=== PATIENT | male | born 1965 | race Caucasian/White ===

== ENCOUNTER 2017-06-02 12:16 | Day surgery (SDC) | payer OTHER ==
[2017-06-02] MEDS ORDERED: PROPOFOL 40 ML (13:37)
[2017-06-02] MEDS ORDERED: LIDOCAINE 2% (SDV) 5 ML INJ (13:37)
[2017-06-02] MEDS ORDERED: PROPOFOL 20 ML (14:15)
== END 2017-06-02 14:45 | disposition home or self-care (01) ==
LOC: GIL 12:16
DX: R19.4 Change in bowel habit (principal); K64.8 Other hemorrhoids; Z86.010 Personal history of colon polyps; E11.9 Type 2 diabetes mellitus without complications; I10 Essential (primary) hypertension; J45.909 Unspecified asthma, uncomplicated
CPT/HCPCS: 45378; 82962